=== PATIENT | male | born 1985 | race Caucasian/White ===

== ENCOUNTER 2023-09-23 14:32 | Emergency (ER) | payer OTHER ==
[~2023-09-23] VITALS: Ht 177.8 cm; Wt 113.4 kg
[2023-09-23 14:56] VITALS: BP 139/77; PULSE 102; RESP 16; TEMP 99.9; O2SAT 94
== END 2023-09-23 15:25 | disposition left against medical advice (07) ==
LOC: MED 14:32
DX: L03.116 Cellulitis of left lower limb (principal); L03.115 Cellulitis of right lower limb; Z53.21 Procedure and treatment not carried out due to patient leaving prior to being seen by health care provider